=== PATIENT | female | born 1965 | race Hispanic/Latino ===

== ENCOUNTER 2018-03-14 06:24 | Day surgery (SDC) | payer OTHER ==
[2018-03-12 13:54] VITALS: BP 96/63
[2018-03-12 13:58] LABS: BASOPHILS % (AUTO) 1.1 % (0.0-5.0); EOSINOPHILS % (AUTO) 1.8 % (0.0-8.0); HEMATOCRIT 42.4 % (36-48); LYMPHOCYTES % (AUTO) 38.1 % (21.0-51.0); MEAN CORPUSCULAR HEMOGLOBIN 30.9 pg (27.0-33.0); MEAN CORPUSCULAR HGB CONC 34.8 g/dL (32.0-36.0); MEAN CORPUSCULAR VOLUME 88.9 fL (79-99); MONOCYTES % (AUTO) 5.7 % (3.0-13.0); NEUTROPHILS % (AUTO) 53.3 % (40.0-77.0); NUCLEATED RED BLOOD CELLS 0.1 % (0.0-0.19); PLATELET COUNT (AUTO) 223 K/uL (130-400); RED BLOOD CELL COUNT(AUTO) 4.77 MIL/uL (4.00-5.50); RED CELL DISTRIBUTION WIDTH 12.4 % (11.0-15.5); WHITE BLOOD COUNT (AUTO) 3.4 K/uL (4.8-10.8)
[2018-03-12 14:18] LABS: CREATININE 1.1 mg/dL (0.5-1.5); POTASSIUM 4.3 mmol/L (3.5-5.1)
[2018-03-14] VITALS (14 sets, daily range): BP systolic 110–147; BP diastolic 63–88
[~2018-03-14] VITALS: Ht 166.4 cm; Wt 68.6 kg
[2018-03-14] MEDS: CEFAZOLIN SODIUM 1 GM VIAL IVP SCH ×2 (05:00→07:46)
[~2018-03-14 06:24] MED LIST: ESCI10TA PO; OMEP20TA2 PO
[2018-03-14] MEDS ORDERED: LACTATED RINGERS 1000ML 1,000 ML IV ONE (06:43)
[2018-03-14] MEDS ORDERED: LIDOCAINE PF 2% 5ML ABBOJECT ONE (06:59)
[2018-03-14] MEDS ORDERED: PROPOFOL 10 MG/ML 20ML VIAL IV ONE (07:00)
[2018-03-14] MEDS ORDERED: ROCURONIUM 10MG/1ML SYR 10 MG/ML ML ONE (07:00)
[2018-03-14] MEDS ORDERED: FENTANYL CITRATE PF 50 MCG/1 ML 2ML VIAL ONE (07:00)
[2018-03-14] MEDS ORDERED: ONDANSETRON HCL 4 MG/2 ML VIAL ONE (07:00)
[2018-03-14] MEDS ORDERED: MIDAZOLAM HCL 1 MG/ML 2ML VIAL ONE (07:01)
--- NOTE | 2018-03-14 07:11 | NUR ---
preop right lower extremity wipe with gwen wipes
--- NOTE | 2018-03-14 07:12 | NUR ---
belongings clothing and cell phone given to patients best friend Edward
[2018-03-14] MEDS ORDERED: NEOSTIGMINE 5MG/5ML SYR IV ONE (08:23)
[2018-03-14] MEDS ORDERED: GLYCOPYRROLATE 1 MG/5 ML SYRINGE ONE (08:23)
[2018-03-14] MEDS ORDERED: ROPIVACAINE 0.5% 5MG/ML 30ML IJ ONE (08:36)
[2018-03-14] MEDS ORDERED: PHENYLEPHRINE HCL 10 MG/ML 1ML VIAL IV ONE (08:36)
[2018-03-14] MEDS ORDERED: SODIUM CHLORIDE 0.9% 10 ML VIAL ONE (08:36)
[2018-03-14] MEDS ORDERED: MEPERIDINE-PF 25 MG/ML SYG ONE ×2 (08:59→09:07)
--- NOTE | 2018-03-14 09:53 | NUR ---
RECEIVED AWAKE ALERT ,NO COMPLAINTS ,RT LOWER EXTREMITY UP ON PILLOW,,CAPILLARY REFILL ,FOOT WARM ,CALL HOWARD IN REACH Addendum: 03/14/18 at 1443 by EYAD AUGUST LVN LVN STATES FEEL RT FOOT NUMBED ,INFORMED HER DUE TO BLOCK ,TO HELP WITH THE PAIN ,VERBALIZE UNDERSTANDING
--- NOTE | 2018-03-14 10:30 | NUR ---
INSTRUCTIONS GIVEN TO FRIEND AND PATIENT,,VERBALIZE UNDERSTANDING,,,STATES KNOWS HOW TO USE CRUTCHES,HAS BEEN USING AT HOME,,,DRESSING TO LOWER RT EXTREMITY,TOES WARM WITH CAPILLARY REFILL ,PEDAL PULSES PRESENT ,UP ON PILLOW,,INSTRUCTED TO HAVE RT LOWER EXTREMITY ELEVATED PER MD,,,X 48 HOURS,,AND NO WEIGHT BEARING,AND KEEP DRESSING ON UNTIL SEEN BY MD,,VERBALIZES UNDERSTANDING,
--- NOTE | 2018-03-14 14:25 | NUR ---
NUMBNESS PT ON PHONE. STATES SHE STILL CANT FEEL HER RIGHT FOOT AND CANT MOVE IT AT ALL. EXPLAINED THAT IS THE PURPOSE OF THE BLOCK TO HELP WITH PAIN CONTROL. STATES IF I COULD TALK TO ANESTHESIA. INFORMED Mandie DEY CRNA OF PTS CONCERNS. STATES THAT IS NORMAL TO FEEL NUMBING FOR UP TO 24 HOURS. INFORMED PT. VERBALIZED UNDERSTANDING. CONCERNS ADDRESSED.
== END 2018-03-14 10:50 | disposition home or self-care (01) ==
LOC: DAH 06:24
PROVIDERS: ATTEND Orthopaedic Surgery
DX: S86.011A Strain of right Achilles tendon, initial encounter (principal); X58.XXXA Exposure to other specified factors, initial encounter; Y93.9 Activity, unspecified; Y92.89 Other specified places as the place of occurrence of the external cause; Y99.9 Unspecified external cause status; Z79.899 Other long term (current) drug therapy; Z98.890 Other specified postprocedural states; K21.9 Gastro-esophageal reflux disease without esophagitis; F41.9 Anxiety disorder, unspecified
CPT/HCPCS: 27650; 36415; 80048; 85025; 88304; A4218; A4450; A4606; A4649; A6223; J0690; J2001; J2175 ×2; J2250; J2370; J2405; J2704; J2710; J2795; J3010; J3490; J7120